=== PATIENT | male | born 1955 | race Caucasian/White ===

== ENCOUNTER 2023-09-15 13:52 | Outpatient (CLI) | payer MEDICARE, SELFPAY ==
[2023-09-15 15:18] LABS: Urine Cotinine NEGATIVE
[2023-09-15 15:23] LABS: Hemoglobin A1C 5.2 % (<5.7)
== END 2023-09-15 13:53 | disposition home or self-care (01) ==
LOC: ANHSURGERY 13:58
PROVIDERS: PCP Family Medicine; Visit Provider Orthopaedic Surgery
DX: M17.12 Unilateral primary osteoarthritis, left knee (principal); Z01.818 Encounter for other preprocedural examination
CPT/HCPCS: 80307; 83036; 87081

== ENCOUNTER 2023-10-07 02:30 | Day surgery (SDC) | payer MEDICARE, SELFPAY ==
[2023-09-15 14:04] VITALS: BMI 30.1
--- NOTE | 2023-09-15 14:29 | PC.NURSE ---
Report to the Outpatient Waiting Room, entrance under the green pavilion located off [facility], at time _0915 on date __10/07/23 . Planned Procedure Time: _1115 . Time changes happen often and if your time is changed the preop area will call you the afternoon before. - You and your visitor will be asked to self-screen and do not enter if you have any COVID symptoms. - A mask is optional within the hospital at this time. Patients may have clear liquids (water, carbonated beverages, clear teas, apple juice) until 3 hours prior to surgery with a maximum of 20 ounces. - No food from midnight until time of surgery - Infants may have breast milk until 4 hours before surgery, formula 6 hours prior to surgery. - Children will be allowed to drink immediately following surgery. If applicable, please bring a bottle or sippy cup to assist with drinking. Juice, water, soda, and popsicles are readily available. For infants on formula, please bring formula the day of surgery. Pacifiers are allowed. Take the following medications with a SIP of water the morning of surgery: __AMLODIPINE,LEVOTHYROXINE,METOPROLOL DO NOT STOP ANY OF YOUR OTHER PRESCRIPTION MEDICATIONS PRIOR TO SURGERY ?EXCEPT THE FOLLOWING Medications to discontinue per physician __PT STATES HOLD VITAMINS/SUPPLEMENTS ,ASPIRIN AND IBUPROFEN 7 DAYS PRE OP PER DR RASMUSSEN. LAST DOSE _09/29/23 Please no make-up, nail ugandan, hairspray, perfume, deodorant, or body powder the day of surgery. No jewelry (including any body piercings) or valuables the day of surgery, leave them at home. Please take a shower or bath the night before, or the morning of, surgery with an antibacterial soap. Wear comfortable, loose fitting clothing. Children are encouraged to wear pajamas. - Jewelry must be removed prior to entering the operating room. Rings and piercings that are not removed may be cut off. - The hospital will not accept responsibility for valuables. - Please leave all valuables, including medications, at home the day of surgery. If you are going home after surgery, a licensed sales route driver must drive you home. - NO public transportation without another adult if you receive anesthesia. - We recommend that an adult stay with you for 24 hours following discharge. - We also recommend that you do not drive, make important decision, drink alcoholic beverages, or take any drugs that were not prescribed by your health care provider for at least 24 hours after your discharge time. For Pediatric surgeries, we recommend two adults accompany the child home. Follow any additional instructions given to you from your surgeon. If you or anyone in your household have experienced Covid symptoms in the past week, please notify your surgeon or the nurse liaison at the phone number below for possible testing. VERBAL AND WRITTEN instructions given to PATIENT AND BEV and asked if any additional questions and then verbalized understanding. Patient advised to call surgeon office or pre surgery nurse liaison [phone] if any additional questions.
[2023-09-15 14:45] VITALS: BP 131/75; PULSE 62; RESP 18; TEMP 36.7; O2SAT 99
--- NOTE | 2023-10-05 12:27 | PM.IMHP ---
H&P: HPI History of Present Illness Date/Time: 10/05/23 12:27 Chief Complaint: Left knee DJD Narrative: 68-year-old male patient of Dr. Araiza who presents today for a left total knee arthroplasty with cortisone injection into the right knee. Patient is having symptoms in both of his knees for 2-3 years. He has been treating these with cortisone injections from time to time, last injections gave him minimal improvement of his symptoms. He has tried bracing which has not helped either. He has used [id number] anti-inflammatories without improvement as well. Patient has severe medial compartment osteoarthritis both knees. At this point he feels he is ready proceed with total knee arthroplasty rather than continue nonsurgical treatment. [facility] Past Medical History Medical History Colon cancer Hypercholesterolemic xanthomatosis Surgical History Surgical History History of colon resection Social History Social History Smoking packs per day: 0.5 Smoking cigarettes per day: 10.0 Years smoked: 5 Smoking pack-years: 2.50 Smoking status: Former smoker Tobacco type: cigarettes Smoking end date: 11/30/73 Additional smoking assessment comments: DENIES ANY FORM OF TOBACCO USE Alcohol intake: never Substance use: never Living arrangements: with family Occupation/Education: retired Spiritual care concerns: No Meds Home Medications and Allergies Home Medications Medication Instructions Recorded Confirmed Type aspirin 81 mg tablet,delayed 81 mg PO DAILY 08/19/22 09/15/23 History release (Adult Low Dose Aspirin) loratadine 10 mg tablet (Claritin) 10 mg PO DAILY 08/19/22 09/15/23 History multivitamin (Daily Multi-Vitamin 1 tablet PO DAILY 08/19/22 09/15/23 History tablet) niacin 500 mg tablet 500 mg PO DAILY 08/19/22 09/15/23 History turmeric root extract 500 mg tablet 500 mg PO DAILY 08/19/22 09/15/23 History levothyroxine 125 mcg tablet See Rx Instructions .Route 08/21/23 09/15/23 Rx .COMPLEX #180 tabs lovastatin 20 mg tablet See Rx Instructions .Route 08/21/23 09/15/23 Rx .COMPLEX #90 tabs cholecalciferol (vitamin D3) 25 25 mcg PO DAILY 09/15/23 09/15/23 History mcg (1,000 unit) tablet ibuprofen 600 mg tablet 600 mg PO QID PRN Pain 09/15/23 09/15/23 History amlodipine 10 mg tablet See Rx Instructions .Route 09/22/23 Rx .COMPLEX #90 tabs hydrochlorothiazide 12.5 mg tablet See Rx Instructions .Route 09/22/23 Rx .COMPLEX #90 tabs metoprolol succinate 25 mg See Rx Instructions .Route 09/22/23 Rx tablet,extended release 24 hr .COMPLEX #90 tabs Allergies Allergy/AdvReac Type Severity Reaction Status Date / Time simvastatin [From Zocor] Allergy Unknown legs aching Unverified 09/15/23 14:06 lisinopril AdvReac Cough Verified 09/15/23 14:06 Exam Narrative: 68-year-old male he is 5 ft 11 224 lb. He has 1+ edema in both ankles. Left knee range of motion is from 0-135 degrees. Trace effusion. He has a positive Stanley's and positive anterior drawer on the left knee. Mild medial joint line pain and moderate laxity to valgus stress. Hip range motion is full without discomfort. Normal quad strength. 2+ posterior artery pulse 1 +dorsalis pedis pulse. Skin is normal. Resp: Auscultation: clear to auscultation bilaterally Cardio: Rate: regular rate Rhythm: regular rhythm Assessment and Plan Assessment and plan (1) Left knee DJD: Code(s): M17.12 - Unilateral primary osteoarthritis, left knee Status: Acute Plan 68-year-old male who has severe medial compartment osteoarthritis in both knees. At this point is left knee is more symptomatic and he feels this point he is ready to proceed with total knee arthroplasty. Surgical procedure as well as the risks and complicati
[2023-10-07] VITALS (14 sets, daily range): BP systolic 114–145; BP diastolic 58–77; PULSE 66–80; RESP 12–20; TEMP 36.2–37; O2SAT 92–100
--- NOTE | ~2023-10-07 | XR_ITS ---
EXAMINATION: [id number] DATE: 10/07/2023 16:03 INDICATION: Postoperative evaluation following left total knee arthroplasty. TECHNIQUE: Anteroposterior and lateral views of the left knee were obtained. COMPARISON: None. FINDINGS: Left total knee arthroplasty without patellar resurfacing appears well seated and in near anatomic al ignment. No fractures identified. Expected postoperative subcutaneous, intramedullary and intra-humera cular gas. IMPRESSION: 1. Left total knee arthroplasty, negative for postoperative purposes. Reviewed, dictated and finalized at location A. [employer]
[2023-10-07] MEDS: TRANEXAMIC ACID 1,000MG/ISO100 1,000 MG/100 ML BAG 200 MG IVPB (10:30)
[2023-10-07] MEDS: LACTATED RINGERS 1,000 ML 30 ML IV CONT ×2 (10:30→16:03)
[2023-10-07] MEDS: ACETAMINOPHEN 500 MG TABLET 1000 MG PO (10:39)
--- NOTE | 2023-10-07 11:17 | WPDANESEPPF ---
Anes - Initial Pre Proc Eval Procedure: Operation Date: 10/07/23 12:00 Proposed Procedures p Left Total Knee Arthroplasty, Right Knee Cortisone Injection - Otto Chan MD Date/Time: 10/07/23 11:17 Surgeon: Otto Chan MD Pre Op Diagnosis: OA bilateral knees Patient Data Age: 68 Gender: M Height: 1.83 m Weight: 98.85 kg Last Vital Signs Temp 97.9 F 10/07/23 09:58 Pulse 66 10/07/23 09:58 Resp 18 10/07/23 09:58 BP 144/69 H 10/07/23 09:58 Pulse Ox 97 10/07/23 09:58 O2 Del Method Room Air 10/07/23 09:58 Allergies Allergy/AdvReac Type Severity Reaction Status Date / Time simvastatin [From Zocor] Allergy Unknown legs aching Unverified 09/15/23 14:06 lisinopril AdvReac Cough Verified 09/15/23 14:06 Home Medications Medication Instructions Recorded Confirmed Type aspirin 81 mg tablet,delayed 81 mg PO DAILY 08/19/22 10/07/23 History release (Adult Low Dose Aspirin) loratadine 10 mg tablet (Claritin) 10 mg PO DAILY 08/19/22 10/07/23 History multivitamin (Daily Multi-Vitamin 1 tablet PO DAILY 08/19/22 10/07/23 History tablet) niacin 500 mg tablet 500 mg PO DAILY 08/19/22 10/07/23 History turmeric root extract 500 mg tablet 500 mg PO DAILY 08/19/22 10/07/23 History levothyroxine 125 mcg tablet See Rx Instructions .Route 08/21/23 10/07/23 Rx .COMPLEX #180 tabs lovastatin 20 mg tablet See Rx Instructions .Route 08/21/23 10/07/23 Rx .COMPLEX #90 tabs cholecalciferol (vitamin D3) 25 25 mcg PO DAILY 09/15/23 10/07/23 History mcg (1,000 unit) tablet ibuprofen 600 mg tablet 600 mg PO QID PRN Pain 09/15/23 10/07/23 History amlodipine 10 mg tablet See Rx Instructions .Route 09/22/23 Rx .COMPLEX #90 tabs hydrochlorothiazide 12.5 mg tablet See Rx Instructions .Route 09/22/23 Rx .COMPLEX #90 tabs metoprolol succinate 25 mg See Rx Instructions .Route 09/22/23 Rx tablet,extended release 24 hr .COMPLEX #90 tabs Patient hx anesthesia problems: none Family hx anesthesia problems: none Results Review: All pre-operative results and documents have been reviewed as part of the pre-operative evaluation. [facility] Past Medical History Medical History Colon cancer Hypercholesterolemic xanthomatosis Surgical History Surgical History History of colon resection Social History Social History Smoking packs per day: 0.5 Smoking cigarettes per day: 10.0 Years smoked: 5 Smoking pack-years: 2.50 Smoking status: Former smoker Tobacco type: cigarettes Smoking end date: 11/30/73 Additional smoking assessment comments: DENIES ANY FORM OF TOBACCO USE Alcohol intake: never Substance use: never Living arrangements: with family Occupation/Education: retired Spiritual care concerns: No Anes - Eval Final PreProcedure Day of Procedure 10/07/23 11:17 Patient weight: normal Heart: regular rate and rhythm Lungs: clear to auscultation Airway: Mallampati scale class II Neurological: alert and oriented Last oral intake: >/= 8 hours ASA classification: III Emergent: no Anesthetic plan: proceed Anesthesia type and monitoring: general LMA and ETT and standard monitoring Results Review: All pre-operative results and documents have been reviewed as part of the pre-operative evaluation. Informed Consent: The patient's anesthetic plan and its attendant risks and benefits were discussed with the patient/family/POA. Questions were solicited and answers provided to the satisfaction of the patient/family/POA.
--- NOTE | 2023-10-07 12:19 | WPDHPUPDATE1 ---
History and Physical Update Update Date/Time: 10/07/23 12:19 History and Physical has been reviewed, including an updated exam of the patient. There are NO changes in the patient's condition. Risks, benefits, and alternatives have been discussed and questions answered. Patient agrees to proceed with procedure.
[2023-10-07] MEDS: ceFAZolin 2 GM/D5W 50 ML 2 GM/50 ML BAG IVPB (12:54)
[2023-10-07] MEDS: ceFAZolin SODIUM 1 GM VIAL 3 GM (13:33)
[2023-10-07] MEDS: TRANEXAMIC ACID 1,000 MG/10 ML AMPUL 1000 MG IV PUSH (14:59)
[2023-10-07] MEDS: ceFAZolin SODIUM 1 GM VIAL IV PUSH (15:01)
[2023-10-07] MEDS: methylPREDNISolone ACETATE 80 MG/ML VIAL IM (15:20)
--- NOTE | 2023-10-07 16:00 | W.PM.PROC2 ---
Procedure Note - Detailed Date of Procedure 10/07/23 Pre-op Diagnosis OA bilateral knees Post-op Diagnosis Same Procedure Performed Cortisone injection right knee Left total knee arthroplasty Surgeon Otto Chan MD Pipe Changer dimitris Anesthesia General Description of Procedure Patient was brought to the operating room and general anesthesia was administered. He received 2 g of Ancef weight is vancomycin 1 g of and tranexamic acid preoperatively. The left knee was prepped draped usual fashion. Limb was exsanguinated tourniquet elevated to 250 mmHg. A 7 in longitudinal midline incision was used in the standard parapatellar arthrotomy utilized infrapatellar and suprapatellar fat pads were excised a quadriceps synovectomy carried out. There was mild chondromalacia of the medial facet of the patella minimal spurring which was debrided I felt this was most appropriate for non resurfacing. A minimal lateral facetectomy was performed. A guide ez was inserted on the femoral canal after aspiration of canal contents and using the 5 degree cutting bushing 8 mm of bone were removed the distal femur. He had pronounced medial pseudolaxity preoperatively and appeared to come out to within 1 or 2? of full extension under anesthesia. Next the tibial plateau was cut. We made a skim cut removing about 1 mm of bone from the low point of the medial tibial plateau. This removed 12 mm from lateral side. The cut was made perpendicular to the axis of tibia. Meniscal remnants were excised the PCL was recessed. Flexion gap measured 10 mm medially 14 mm laterally. The femoral sizing guide was applied to the distal femur set at 5? of external rotation which matched [place] line. Posterior referencing pinholes were placed. We applied the size 70 cutting block and the anterior cut was well off the anterior cortex. We downsized the 67.5 in this given the anterior cut there was appropriate. Posterior and chamfer cuts were made and the 67.5 vanguard femoral component trial fit nicely. There was between 1 and 2 mm of bone medial lateral to the trial component distally. The size 12 CR 75 trial was placed in flexion and lateral flexion gap was 2 mm as was the medial gap with a CR insert. We had good medial to lateral balance in flexion. The tibia was sized to a 75 which fit line to line anteromedial to posterolateral at proper rotation this was punched. Bone quality was excellent. The medial plateau course was quite sclerotic as it was a skim cut. We trialed with the 11 insert. There was no play medially in extension with about 3 mm of lateral gapping in extension with varus stress. There was a little bit loose to anterior posterior drawer at 90?. The medial tibial osteophyte was removed. A large posterior femoral osteophyte was removed and we trialed again with a 12. The 12 had appropriate stability at 90? to AP stress with about a mm each medial lateral opening at 90?. And extension the lateral side opened up between 2 and 3 mm medial side about 1 and with the arthrotomy towel clip excellent stability to anterior drawer at 90 but the knee has no play medially and barely positive bounce. Therefore I elected to remove 1 more mm of bone distal femur. I notice that the 5 degree ez we were at about 5.5? valgus. I removed a full mm medially and 0.5 mm laterally and we revisited the chamfer cuts and at this point the knee came out to full extension to mm medial opening 2-3 lateral opening and the arthrotomy closed the knee still came out to full extension with negative bounce. [place] flexion was 140? with the arthrotomy closed. Excellent AP stability in all positions. Lug holes were drilled in the distal femur. Step drill was used to make multiple perforations in the tibial plateau and distal femur and the bone surfaces thoroughly irrigated dried. Using 2 batches of gentamicin methylmethacrylate the cement was mixed and medially applied the 75 tibial component the 67.5
[2023-10-07] MEDS: KETOROLAC 15 MG/ML VIAL (*BKC) IV PUSH ×3 (16:12→23:49)
--- NOTE | 2023-10-07 16:14 | PM.OP ---
Procedure Note - Brief Procedure Note - Brief Date of procedure: 10/07/23 OA bilateral knees Procedure performed: Left total knee arthroplasty Surgeon: NESS Ryan Findings: 68-year-old male underwent left total knee arthroplasty on 10/07. I was involved in the procedure including positioning the patient on the OR table in 1st assisting through the time of surgery. Total time spent was 3 hours
[2023-10-07] MEDS: fentaNYL CITRATE INJ (*CRX) 100 MCG/2 ML VIAL 25 MCG IV PUSH ×4 (16:26→16:41)
[2023-10-07] MEDS: HYDROmorphone HCL INJ (*CRX) 1 MG/ML SYR 0.5 MG IV PUSH ×2 (16:51→17:09)
--- NOTE | 2023-10-07 17:55 | ADMGEN ---
This patient, Titi Hutchinson, was admitted to [facility] Surg Room 311-01. Patient/family oriented to hospital policies and general routines including ID bracelet, bed and alarms, visiting hours, pain management, procedures, bathroom and other care routines, personal items, smoking policy, room service/diet, and visiting hours. Information on how to activate the Rapid Response Team has been discussed. Patient/Family are encouraged to report perceived risks to care and to ask questions if they do not understand what they are told or what they should do.
[2023-10-07] MEDS: SENNA/DOCUSATE SODIUM TABLET 2 TAB PO (18:32)
[2023-10-07] MEDS: oxyCODONE HCL (*CRX) 5 MG TAB IR PO ×2 (18:32→21:37)
[2023-10-07] MEDS: ACETAMINOPHEN 325 MG TABLET 650 MG PO ×2 (18:32→23:49)
[2023-10-07] MEDS: VANCOMYCIN 1,000 MG/NS 250 ML 1,000 MG/250 ML BAG 250 MG IVPB (18:33)
[2023-10-07] MEDS: FAMOTIDINE 20 MG TABLET PO (21:37)
[2023-10-07] MEDS: ceFAZolin 1 GM/NS 50 ML 1 GM/50 ML BAG IVPB (21:38)
[2023-10-08] MEDS: oxyCODONE HCL (*CRX) 5 MG TAB IR PO ×4 (00:58→12:59)
[2023-10-08 03:28] VITALS: BP 114/63; PULSE 70; RESP 16; TEMP 36.4; O2SAT 98
[2023-10-08] MEDS: ACETAMINOPHEN 325 MG TABLET 650 MG PO ×2 (05:04→12:57)
[2023-10-08] MEDS: ceFAZolin 1 GM/NS 50 ML 1 GM/50 ML BAG IVPB (05:05)
[2023-10-08] MEDS: LEVOTHYROXINE SODIUM 125 MCG TABLET BY MOUTH (05:06)
[2023-10-08 06:16] LABS: Basophils Percent Auto 0.1 % (0.2-1.2); Hematocrit 37.5 % (42.0-52.0); Hemoglobin 12.5 g/dL (14.0-18.0); Immature Granulocyte Absolute 0.08 K/mm3 (0.00-0.031); Immature Granulocyte Percent A 0.6 % (0-0.5); Lymphocytes Absolute Auto 1.13 K/mm3 (0.9-3.2); Lymphocytes Percent Auto 8.3 % (18.3-44.2); Mean Corpuscular HGB Conc 33.3 g/dl (32-36); Mean Corpuscular Volume 93.1 fl (80-100); Neutrophils Absolute Auto 11.4 K/mm3 (1.3-6.7); Platelet Count Result 259 k/mm3 (150-375); Red Blood Count 4.03 M/mm3 (4.6-6.20); Red Cell Distribution Width 13.4 % (11.5-14.5); White Blood Count 13.6 K/mm3 (4.5-10.0)
[2023-10-08 06:17] LABS: Alanine Aminotransferase 67 U/L (6-50); Albumin Level 3.7 g/dL (3.5-5.1); Alkaline Phosphatase 54 U/L (38-126); Anion Gap 5 mmol/L (8-16); Aspartate Amino Transferase 35 U/L (17-59); Bilirubin,Total 0.5 mg/dL (0.2-1.3); Blood Urea Nitrogen 23 mg/dL (9-20); Calcium 8.6 mg/dL (8.4-10.2); Carbon Dioxide 24 mmol/L (22-30); Chloride 105 mmol/L (98-107); Estimated CRCL calculation 74 ml/min; Estimated Glomerular Filt Rate > 60; Glucose 135 mg/dL (65-110); Potassium 4.1 mmol/L (3.4-5.0); Sodium 134 mmol/L (137-145)
[2023-10-08] MEDS: VANCOMYCIN 1,000 MG/NS 250 ML 1,000 MG/250 ML BAG 250 MG IVPB (07:06)
[2023-10-08 07:28] VITALS: BP 125/64; PULSE 70; RESP 18; TEMP 36.1; O2SAT 100
--- NOTE | 2023-10-08 07:33 | PM.PNORT ---
Subjective Subjective Date/Time Seen: 10/08/23 07:33 Interval history: Postop day 1 patient is alert. He is afebrile vital signs are stable. Morning his dressing is dry and intact. Pain is controlled. Neurovascularly is intact. He has been up to the restroom multiple times overnight.. Overall patient is doing very good see eager to go today. We will plan to have the patient work physical therapy this morning and again this afternoon once IV antibiotics have been completed he will be discharged to home. Objective Data Vital Signs Vital Signs: Vital Signs - 24 hr 10/07/23 09:58 10/07/23 16:03 10/07/23 16:15 Temperature 36.6 C 37.0 C Pulse Rate 66 67 75 Respiratory Rate 18 15 12 Blood Pressure 144/69 H 114/58 L 141/77 H Pulse Oximetry 97 98 94 Oxygen Delivery Room Air Simple Face Mask Simple Face Mask Oxygen Flow Rate 8 8 10/07/23 16:30 10/07/23 16:45 10/07/23 17:00 Temperature Pulse Rate 76 80 77 Respiratory Rate 16 13 12 Blood Pressure 145/71 H 144/73 H 138/75 Pulse Oximetry 96 96 96 Oxygen Delivery Simple Face Mask Nasal Cannula Nasal Cannula Oxygen Flow Rate 8 3 3 10/07/23 17:15 10/07/23 17:30 10/07/23 17:55 Temperature 36.3 C L Pulse Rate 75 75 74 Respiratory Rate 14 14 14 Blood Pressure 142/71 H 144/75 H 124/62 Pulse Oximetry 100 98 96 Oxygen Delivery Nasal Cannula Nasal Cannula Oxygen Flow Rate 3 3 10/07/23 18:10 10/07/23 18:40 10/07/23 18:00 Temperature 36.3 C L 36.2 C L Pulse Rate 69 77 Respiratory Rate 12 20 20 Blood Pressure 127/63 133/65 Pulse Oximetry 92 98 98 Oxygen Delivery Nasal Cannula Oxygen Flow Rate 2 10/07/23 19:28 10/07/23 23:28 10/08/23 03:28 Temperature 36.2 C L 36.2 C L 36.4 C Pulse Rate 73 75 70 Respiratory Rate 14 14 16 Blood Pressure 133/63 136/70 114/63 Pulse Oximetry 97 98 98 Oxygen Delivery Oxygen Flow Rate Intake/Output Intake/Output: Intake & Output 10/05/23 10/06/23 10/07/23 10/08/23 23:59 23:59 23:59 23:59 Intake Total 2300 Output Total 550 350 Balance 1750 -350 Meds/Results Medications: Active Medications Generic Name Dose Route Start Last Admin Trade Name Gricel PRN Reason Stop Dose Admin Acetaminophen 650 mg 10/07/23 17:43 10/08/23 05:04 Acetaminophen 325 Mg Tablet PO 650 mg Q6H WOLF Administration Amlodipine Besylate 10 mg 10/08/23 09:00 Amlodipine Besylate 5 Mg Tablet PO QAM [facility] Apixaban 2.5 mg 10/08/23 09:00 Apixaban 2.5 Mg Tablet PO 10/19/23 21:01 Q12HR WOLF Cefdinir 300 mg 10/08/23 09:00 Cefdinir 300 Mg Capsule PO Q12HR WOLF Celecoxib 200 mg 10/08/23 08:00 Celecoxib 200 Mg Capsule PO DAILY@0800 WOLF Diphenhydramine HCl 25 mg 10/07/23 17:43 Diphenhydramine Hcl Inj 50 Mg/Ml Vial IV PUSH Q6H PRN Itching Famotidine 20 mg 10/07/23 21:00 10/07/23 21:37 Famotidine 20 Mg Tablet PO 20 mg Q12HR WOLF Administration Hydrochlorothiazide 12.5 mg 10/08/23 09:00 Hydrochlorothiazide 12.5 Mg Capsule PO QAM [facility] Vancomycin HCl 1,000 mg in 250 mls @ 250 mls/hr 10/07/23 19:00 10/08/23 07:06 Vancomycin 1,000 Mg/Ns 250 Ml IVPB 10/08/23 07:59 250 mls/hr Q12H WOLF Administration Cefazolin Sodium 1 gm in 50 mls @ 100 mls/hr 10/07/23 21:00 10/08/23 05:05 Ancef 1 Gm/Ns 50 Ml IVPB 10/08/23 13:29 100 mls/hr Q8H WOLF Administration Levothyroxine Sodium 125 mcg 10/08/23 06:30 10/08/23 05:06 Levothyroxine Sodium 125 Mcg Tablet BY MOUTH 125 mcg DAILY@0630 WOLF Administration Lovastatin 20 mg 10/08/23 09:00 Lovastatin 20 Mg Tablet BY MOUTH DAILY [facility] Metoprolol Succinate 25 mg 10/08/23 09:00 Metoprolol Succinate Ext Rel 25 Mg Tabcr PO QAM [facility] Naloxone HCl 0.1 mg 10/07/23 17:43 Naloxone Hcl 0.4 Mg/Ml Vial IV PUSH Q2M PRN Opiate Reversal Ondansetron HCl 4 mg 10/07/23 17:43 Ondansetron Inj 4 Mg/2 Ml Vial IV PUSH Q4H PRN Nausea And Vomiting Ox
--- NOTE | 2023-10-08 07:34 | PM.DS ---
DS: Admitting Diagnosis Discharge Date 10/08 Admitting Diagnosis Left knee DJD DS: Discharge Diagnosis Discharge Diagnosis (1) Left knee DJD: Code(s): M17.12 - Unilateral primary osteoarthritis, left knee Status: Acute DS: Summary Hospital Course Hospital Course: 68-year-old male who on left total knee arthroplasty on 10/07. Underwent the procedure without complications. Postoperatively he has been afebrile and vital signs are stable. Neurovascular he is intact. Dressing is dry and it pain is well controlled with scheduled Tylenol 650 q.6 also on oxycodone 5 mg. He is also getting Celebrex 200 mg daily. 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 He is on Eliquis for DVT prophylaxis. On postop day 1 patient's liver enzymes had improved dramatically he had elevation of his ALT only at this point the rest had returned to normal. Times a day of surgery and comfortable. He is going to be discharged home 11 9. Patient does have a heel lift to be worn in his right leg he is recovering from this due to his significant leg. Patient was strongly advised to keep leg elevated home with foot higher than heart to prevent swelling in the leg and knee. Size is every hour while awake. He has outpatient therapy starting next week. Patient will also go home on Senokot MiraLax as well as a 10 day course of Omnicef. He was advised any questions or concerns he is to call the office. Time Spent with Patient Time attestation: Total time spent providing and/or coordinating discharge services: DS: Data Data Completed and Pending Labs on day of discharge: Labs from last 24 hours 10/08/23 10/07/23 05:24 10:17 WBC 13.6 H RBC 4.03 L Hgb 12.5 L Hct 37.5 L MCV 93.1 MCH 31.0 MCHC 33.3 RDW 13.4 Plt Count 259 MPV 10.0 Immature Gran % (Auto) 0.6 H Neut % (Auto) 84.0 H Lymph % (Auto) 8.3 L [place] % (Auto) 7.0 Eos % (Auto) 0.0 Baso % (Auto) 0.1 L Lymph # (Auto) 1.13 [place] # (Auto) 1.0 H Eos # (Auto) 0.0 Baso # (Auto) 0.0 Abs Immat Gran (auto) 0.08 H Absolute Neuts (auto) 11.4 H Absolute Nucleated RBC 0.0 Nucleated RBC % 0.0 Sodium 134 L Potassium 4.1 Chloride 105 Carbon Dioxide 24 Anion Gap 5 L BUN 23 H Creatinine 0.90 Estim Creat Clear Calc 74 Estimated GFR > 60 Glucose 135 H Calcium 8.6 Total Bilirubin 0.5 AST 35 ALT 67 H Alkaline Phosphatase 54 Total Protein 6.0 L Albumin 3.7 Blood Type A Positive Antibody Screen Negative Discharge Plan Discharge Patient Disposition: Home, Self-Care Stand Alone Forms: General Discharge Instructions Discharge Medications: No Action levothyroxine 125 mcg tablet See Rx Instructions .ROUTE .COMPLEX Qty: 180 1RF Dose Instruction: TAKE 2 TABLETS BY MOUTH EVERY DAY Rx Instructions: TAKE 2 TABLETS BY MOUTH EVERY DAY lovastatin 20 mg tablet See Rx Instructions .ROUTE .COMPLEX Qty: 90 0RF Dose Instruction: TAKE 1 TABLET BY MOUTH EVERY DAY Rx Instructions: TAKE 1 TABLET BY MOUTH EVERY DAY multivitamin [Daily Multi-Vitamin] Tablet 1 tablet PO DAILY aspirin [Adult Low Dose Aspirin] 81 mg tablet,delayed release (DR/EC) 81 mg PO DAILY loratadine [Claritin] 10 mg tablet 10 mg PO DAILY niacin 500 mg tablet 500 mg PO DAILY turmeric root extract 500 mg tablet 500 mg PO DAILY cholecalciferol (vitamin D3) 25 mcg (1,000 unit) Tablet 25 mcg PO DAILY ibuprofen 600 mg Tablet 600 mg PO QID PRN (Reason: Pain) hydrochlorothiazide 12.5 mg tablet See Rx Instructions .ROUTE .COMPLEX Qty: 90 0RF Dose Instruction: TAKE 1 TABLET BY MOUTH DAILY Rx Instructions: TAKE 1 TABLET BY MOUTH DAILY metoprolol succinate 25 mg tablet extended release 24 hr See Rx Instructions .ROUTE .COMPLEX Qty: 90 0RF Dose Instruction: TAKE 1 TABLET BY
[2023-10-08] MEDS: CEFDINIR 300 MG CAPSULE PO (09:02)
[2023-10-08] MEDS: CELECOXIB 200 MG CAPSULE PO (09:02)
[2023-10-08] MEDS: amLODIPine BESYLATE 5 MG TABLET 10 MG PO (09:02)
[2023-10-08 09:03] VITALS: PULSE 70
[2023-10-08] MEDS: APIXABAN 2.5 MG TABLET PO (09:03)
[2023-10-08] MEDS: LOVASTATIN 20 MG TABLET BY MOUTH (09:03)
[2023-10-08] MEDS: hydroCHLOROthiazide 12.5 MG CAPSULE PO (09:03)
[2023-10-08] MEDS: FAMOTIDINE 20 MG TABLET PO (09:03)
[2023-10-08] MEDS: polyethylene glycoL 3350 17 GM POWD.PACK PO (09:03)
[2023-10-08] MEDS: METOPROLOL SUCCINATE EXT REL 25 MG TABCR PO (09:03)
--- NOTE | 2023-10-08 09:14 | P.PNAN_ITS ---
Anes - Prog Note Post-Op Date/Time: 10/08/23 09:14 Cardiovascular status: normal Respiratory status: normal Airway patency: baseline Mental status: baseline Post-Op hydration status: normal Vital Signs: Last Vital Signs Temp 36.1 C L 10/08/23 07:28 Pulse 70 10/08/23 09:03 Resp 18 10/08/23 07:28 BP 125/64 10/08/23 07:28 Pulse Ox 100 10/08/23 07:28 O2 Del Method Room Air 10/08/23 08:30 O2 Flow Rate 2 10/07/23 18:00 Pain Score (VAS): 02/06 I/O: Intake & Output 10/07/23 10/08/23 10/08/23 23:59 07:59 15:59 Intake Total 2300 Output Total 550 350 200 Balance 1750 -350 -200 Laboratory Tests 10/08/23 05:24 10/08/23 05:24 10/07/23 10/08/23 10:17 05:24 WBC 13.6 H RBC 4.03 L Hgb 12.5 L Hct 37.5 L MCV 93.1 MCH 31.0 MCHC 33.3 RDW 13.4 Plt Count 259 MPV 10.0 Immature Gran % (Auto) 0.6 H Neut % (Auto) 84.0 H Lymph % (Auto) 8.3 L [place] % (Auto) 7.0 Eos % (Auto) 0.0 Baso % (Auto) 0.1 L Lymph # (Auto) 1.13 [place] # (Auto) 1.0 H Eos # (Auto) 0.0 Baso # (Auto) 0.0 Abs Immat Gran (auto) 0.08 H Absolute Neuts (auto) 11.4 H Absolute Nucleated RBC 0.0 Nucleated RBC % 0.0 Sodium 134 L Potassium 4.1 Chloride 105 Carbon Dioxide 24 Anion Gap 5 L BUN 23 H Creatinine 0.90 Estim Creat Clear Calc 74 Estimated GFR > 60 Glucose 135 H Calcium 8.6 Total Bilirubin 0.5 AST 35 ALT 67 H Alkaline Phosphatase 54 Total Protein 6.0 L Albumin 3.7 Blood Type A Positive Antibody Screen Negative Post-procedural complaints: none Patient Feedback: Patient satisfied with anesthetic care.
[2023-10-08 11:28] VITALS: BP 140/64; PULSE 80; RESP 20; TEMP 36.7; O2SAT 100
--- NOTE | 2023-10-08 13:20 | PC.NURSE ---
iv out, d/c papers signed, denies any questions, dressing changed and one extra sent home for POD 7. patient leaving by private car, taken out by wheelchair
== END 2023-10-08 14:45 | disposition home or self-care (01) ==
LOC: ANHSURGERY 09:41 → ANH3MEDSUR 17:45
PROVIDERS: Physician Assistant Surgical; PCP Family Medicine; Visit Provider Orthopaedic Surgery
PROC: (CPT 27447; principal; 2023-10-07 12:00)
DX: M17.0 Bilateral primary osteoarthritis of knee (principal); Z79.82 Long term (current) use of aspirin; Z85.038 Personal history of other malignant neoplasm of large intestine; Z90.49 Acquired absence of other specified parts of digestive tract; Z87.891 Personal history of nicotine dependence
CPT/HCPCS: 27447; 20610; 36415; 73560; 80053; 80307; 83036; 85025; 86850; 86900; 86901; 87081; 97110; 97116; 97161; 97165; 97530; A9270; C1713; C1776; J0171; J0330; J0690; J1040; J1100; J1170; J1885; J2270; J2405; J2704; J2795; J3010; J3370; J7120

== ENCOUNTER 2024-09-22 09:36 | Outpatient (CLI) | payer MEDICARE, SELFPAY ==
--- NOTE | 2024-09-22 10:39 | ECG_ITS ---
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
[2024-09-22 12:05] LABS: Basophils Percent Auto 0.4 % (0.2-1.2); Eosinophils Absolute Auto 0.3 K/mm3 (0-0.3); Eosinophils Percent Auto 3.6 % (0-4.4); Hematocrit 42.5 % (42.0-52.0); Hemoglobin 14.5 g/dL (14.0-18.0); Immature Granulocyte Absolute 0.02 K/mm3 (0.00-0.031); Immature Granulocyte Percent A 0.3 % (0-0.5); Lymphocytes Absolute Auto 2.14 K/mm3 (0.9-3.2); Lymphocytes Percent Auto 30.7 % (18.3-44.2); Mean Corpuscular HGB Conc 34.1 g/dl (32-36); Mean Corpuscular Hemoglobin 31.9 pg (26-34); Mean Corpuscular Volume 93.4 fl (80-100); Mean Platelet Volume 10.1 fl (7.4-10.4); Monocytes Absolute Auto 0.8 K/mm3 (0.1-0.6); Monocytes Percent Auto 11.4 % (2.6-8.5); Neutrophils Absolute Auto 3.7 K/mm3 (1.3-6.7); Neutrophils Percent Auto 53.6 % (45.5-73.1); Platelet Count Result 275 k/mm3 (150-375); Red Blood Count 4.55 M/mm3 (4.6-6.20); Red Cell Distribution Width 13.3 % (11.5-14.5)
[2024-09-22 12:18] LABS: Urine Cotinine NEGATIVE
[2024-09-22 12:19] LABS: Albumin Level 4.1 g/dL (3.5-5.1); Anion Gap 9 mmol/L (4-12); Blood Urea Nitrogen 19 mg/dL (9-20); Calcium 8.9 mg/dL (8.4-10.2); Carbon Dioxide 24 mmol/L (22-30); Chloride 107 mmol/L (98-107); Estimated Glomerular Filt Rate > 60; Glucose 86 mg/dL (65-110); Potassium 3.9 mmol/L (3.4-5.0); Sodium 140 mmol/L (137-145)
[2024-09-22 12:37] LABS: Hemoglobin A1C 5.6 % (<5.7)
== END 2024-09-22 09:37 | disposition home or self-care (01) ==
PROVIDERS: PCP Nurse Practitioner Family; Visit Provider Orthopaedic Surgery
DX: M17.11 Unilateral primary osteoarthritis, right knee (principal); Z01.818 Encounter for other preprocedural examination
CPT/HCPCS: 80048; 80307; 82040; 83036; 85025; 87081; 93005

== ENCOUNTER 2024-10-10 01:18 | Day surgery (SDC) | payer MEDICARE, SELFPAY ==
[2024-09-22 09:55] VITALS: BMI 30.4
--- NOTE | 2024-09-22 10:22 | PC.NURSE ---
Report to the Outpatient Waiting Room, entrance under the green pavilion located off [facility], at time _6 AM on date 10/10/24 . Planned Procedure Time: _7:30 AM .? Time changes happen often and if your time is changed the preop area will call you the afternoon before. - You and your visitor will be asked to self-screen and do not enter if you have any COVID symptoms. Please call surgeon if you need to reschedule. - A mask is optional within the hospital at this time. Patients may have clear liquids (water, carbonated beverages, clear teas, apple juice) until 3 hours prior to surgery( 4:30 AM) with a maximum of 20 ounces. - No food from midnight until time of surgery and no smoking - Infants may have breast milk until 4 hours before surgery, infant formula 6 hours prior to surgery. - Children will be allowed to drink immediately following surgery.? If applicable, please bring a bottle or sippy cup to assist with drinking. Juice, water, soda, and popsicles are readily available.? For infants on formula, please bring formula the day of surgery.? Pacifiers are allowed. Take only the following medications with a SIP of water on the morning of surgery: _AMLODIPINE, LEVOTHYROXINE,METOPROLOL DO NOT STOP ANY OF YOUR OTHER PRESCRIPTION MEDICATIONS PRIOR TO SURGERY EXCEPT THE FOLLOWING Medications to discontinue per physician __CONTINUE TAKING CELECOXIB PER DR RASMUSSEN. HOLD MULTIVITAMIN 3 DAYS PRE OP .LAST DOSE 10/06/24 Please no make-up, nail french, hairspray, perfume, deodorant, or body powder the day of surgery.? No jewelry (including any body piercings) or valuables the day of surgery, leave them at home.? Please take a shower or bath the night before, or the morning of, surgery with an antibacterial soap.? Wear comfortable, loose fitting clothing.? Children are encouraged to wear pajamas. - Jewelry must be removed prior to entering the operating room.? Rings and piercings that are not removed may be cut off. - The hospital will not accept responsibility for valuables.? - Please leave all valuables, including medications, at home the day of surgery. If you are going home after surgery, a licensed petroleum transport driver must drive you home.? - NO public transportation without another adult if you receive anesthesia. - We recommend that an adult stay with you for 24 hours following discharge. - We also recommend that you do not drive, make important decision, drink alcoholic beverages, or take any drugs that were not prescribed by your health care provider for at least 24 hours after your discharge time. Follow any additional instructions given to you from your surgeon. VERBAL AND WRITTEN instructions given to _PATIENT AND COURTNEY and asked if any additional questions and then verbalized understanding. Patient advised to call surgeon office or pre surgery nurse liaison [phone] if any additional questions.
[2024-09-22 10:40] VITALS: BP 125/62; PULSE 60; RESP 18; TEMP 36.7; O2SAT 100
--- NOTE | 2024-10-07 11:03 | P.HP_ITS ---
H&P: HPI History of Present Illness Date/Time: 10/07/24 11:03 Chief Complaint: Right knee DJD Narrative: 69-year-old male presents today for a right total knee arthroplasty. Patient underwent left total knee arthroplasty in September of last year. He had uneventful recovery and is overall very happy with his results. Patient has severe medial compartment osteoarthritis in the right knee. He feels this point he is ready proceed with total knee arthroplasty. He has been taking Celebrex 200 mg daily as well as Tylenol. Review of Systems Review of Systems: All systems reviewed & are unremarkable except as noted in HPI and below PMFSH Past Medical History Medical History Colon cancer Hypercholesterolemic xanthomatosis Surgical History Surgical History History of colon resection Hx of knee surgery Social History Social History Social History: very confident with medical forms 10/02/24 patient declined SDOH Smoking packs per day: 0.5 Smoking cigarettes per day: 10.0 Years smoked: 5 Smoking pack-years: 2.50 Smoking status: Former smoker Tobacco type: cigarettes Second hand tobacco smoke exposure: Yes Smoking end date: 11/30/73 Additional smoking assessment comments: DENIES ANY FORM OF TOBACCO USE Alcohol intake: never Substance use: never Substance use type: does not use Do You Feel Safe in your Home?: Yes Lack of Transportation: No Lack of Food: Never True Current Housing: I Have Housing Concerned About Future Housing: No Difficulty Paying Gas/Electric Bills: No Difficulty Paying for Meds: No Currently Unemployed: No Education: Trade/Vocational Certificate Difficulty w/ Childcare or Family Care: No Living arrangements: with family 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 Gender identity (if verbalized by the patient): Male Spiritual care concerns: No Meds Home Medications and Allergies Home Medications Medication Instructions Recorded Confirmed Type loratadine 10 mg tablet (Claritin) 10 mg PO DAILY 08/19/22 10/05/24 History multivitamin (Daily Multi-Vitamin 1 tablet PO DAILY 08/19/22 10/05/24 History tablet) amlodipine 10 mg tablet See Rx Instructions .Route 06/27/24 10/05/24 Rx .COMPLEX #90 tabs hydrochlorothiazide 12.5 mg tablet See Rx Instructions .Route 06/27/24 10/05/24 Rx .COMPLEX #90 tabs metoprolol succinate 25 mg See Rx Instructions .Route 06/27/24 10/05/24 Rx tablet,extended release 24 hr .COMPLEX #90 tabs levothyroxine 125 mcg tablet See Rx Instructions .Route 06/28/24 10/05/24 Rx .COMPLEX #180 tabs celecoxib 200 mg capsule (Celebrex) 200 mg PO PRN PRN Pain 09/22/24 10/05/24 History lovastatin 20 mg tablet See Rx Instructions .Route 09/28/24 10/05/24 Rx .COMPLEX #90 tabs Allergies Allergy/AdvReac Type Severity Reaction Status Date / Time simvastatin [From Zocor] Allergy Unknown legs aching Verified 10/05/24 09:36 lisinopril AdvReac Cough Verified 10/05/24 09:36 Exam Narrative: 69-year-old male very alert. BMI is 30. 4. Right knee range of motion is from 5-130 degrees. There is obvious valgus alignment with some lateral laxity to varus stress. Very little medial laxity. There is a 3 in medial oblique scar from previous open meniscectomy. Mild effusion in the knee. 2+ pedal edema in the right lower extremity trace pedal edema in the left. 2+ pitting pretibial edema on the right 1+ on the left. Hip has full range of motion without discomfort, negative Stinchfield maneuver. Normal quad strength. Normal sensation right lower extremity. 2+ dorsalis pedis and posterior artery pulse. Resp: Auscultation: clear to auscultation bilaterally Cardio: Rate: regular rate Rhythm: regular rhythm Assessment and Plan Assessment and plan (1) Primary osteoarthritis of right knee: Code(s): M17.11 - Unilateral primary osteoarthritis, right knee Status: Acute Assessment and Plan: 69-year-old male who has advanced medial compartment osteoarthritis in the right knee with continued symptoms. Patient is happy with his left knee replacement and feels he is ready proceed with the right. Surgical procedures well as the risks and complications were discussed in detail all questions were answered and we will proceed. Patient will take his Celebrex up until the day of surgery but not take it the day of surgery. He will see his primary care doctor for pre- surgical clearance. Did have abnormality on his EKG. He was seen by Cardiology and was cleared without additional testing. Patient's nasal swab was negative. Hemoglobin is 14.5 platelets are 275. Chem panel was all within normal limits creatinine 0.80
[2024-10-10] VITALS (15 sets, daily range): BP systolic 119–136; BP diastolic 53–73; PULSE 61–74; RESP 12–19; TEMP 35.7–36.7; O2SAT 89–100; BMI 31.1
--- NOTE | ~2024-10-10 | XR_ITS ---
EXAMINATION: [id number] DATE: 10/10/2024 11:23 INDICATION: Total right knee arthroplasty. Postop. TECHNIQUE: 2 views of right knee were obtained. COMPARISON: Right knee radiographs 08/03/2024 FINDINGS: There is a total right knee arthroplasty without patellar resurfacing in near-anatomic alig nment. No fracture. There are osteophytes of the patella. There is gas in the knee joint and soft tis sues, consistent with recent surgery. IMPRESSION: 1. Total right knee arthroplasty in near-anatomic alignment. Reviewed, dictated and finalized at location [facility]. [facility]
[2024-10-10] MEDS: ACETAMINOPHEN 500 MG TABLET 1000 MG PO (06:30)
[2024-10-10] MEDS: LACTATED RINGERS 1,000 ML 30 ML IV CONT ×2 (06:30→11:22)
[2024-10-10] MEDS: VANCOMYCIN 1,500 MG/NS 500 ML BAG 250 MG IVPB (06:30)
[2024-10-10] MEDS: TRANEXAMIC ACID 1,000MG/ISO100 1,000 MG/100 ML BAG 200 MG IVPB (07:00)
--- NOTE | 2024-10-10 07:18 | WPDHPUPDATE1 ---
History and Physical Update Update Date/Time: 10/10/24 07:18 History and Physical has been reviewed, including an updated exam of the patient. There are NO changes in the patient's condition. Risks, benefits, and alternatives have been discussed and questions answered. Patient agrees to proceed with procedure.
--- NOTE | 2024-10-10 07:19 | P.PNAN_ITS ---
Anes - Initial Pre Proc Eval Procedure: Operation Date: 10/10/24 07:30 Proposed Procedures p Right Total Knee Arthroplasty - Otto Chan MD Date/Time: 10/10/24 07:19 Surgeon: Otto Chan MD Pre Op Diagnosis: O A Rt Knee Patient Data Age: 69 Gender: M Height: 1.83 m Weight: 101.6 kg Last Vital Signs Temp 98.0 F 09/22/24 10:40 Pulse 60 09/22/24 10:40 Resp 18 09/22/24 10:40 BP 125/62 09/22/24 10:40 Pulse Ox 100 09/22/24 10:40 O2 Del Method Room Air 09/22/24 10:40 Allergies Allergy/AdvReac Type Severity Reaction Status Date / Time simvastatin [From Zocor] Allergy Unknown legs aching Verified 10/05/24 09:36 lisinopril AdvReac Cough Verified 10/05/24 09:36 Home Medications Medication Instructions Recorded Confirmed Type loratadine 10 mg tablet (Claritin) 10 mg PO DAILY 08/19/22 10/05/24 History multivitamin (Daily Multi-Vitamin 1 tablet PO DAILY 08/19/22 10/05/24 History tablet) amlodipine 10 mg tablet See Rx Instructions .Route 06/27/24 10/05/24 Rx .COMPLEX #90 tabs hydrochlorothiazide 12.5 mg tablet See Rx Instructions .Route 06/27/24 10/05/24 Rx .COMPLEX #90 tabs metoprolol succinate 25 mg See Rx Instructions .Route 06/27/24 10/05/24 Rx tablet,extended release 24 hr .COMPLEX #90 tabs levothyroxine 125 mcg tablet See Rx Instructions .Route 06/28/24 10/05/24 Rx .COMPLEX #180 tabs celecoxib 200 mg capsule (Celebrex) 200 mg PO PRN PRN Pain 09/22/24 10/05/24 History lovastatin 20 mg tablet See Rx Instructions .Route 09/28/24 10/05/24 Rx .COMPLEX #90 tabs Laboratory Tests 10/10/24 06:20 Blood Type A Positive Antibody Screen Pending Patient hx anesthesia problems: none Family hx anesthesia problems: none Results Review: All pre-operative results and documents have been reviewed as part of the pre- operative evaluation. [facility] Past Medical History Medical History Colon cancer Hypercholesterolemic xanthomatosis Surgical History Surgical History History of colon resection Hx of knee surgery Social History Social History Social History: very confident with medical forms 10/02/24 patient declined SDOH Smoking packs per day: 0.5 Smoking cigarettes per day: 10.0 Years smoked: 5 Smoking pack-years: 2.50 Smoking status: Former smoker Tobacco type: cigarettes Second hand tobacco smoke exposure: Yes Smoking end date: 11/30/73 Additional smoking assessment comments: DENIES ANY FORM OF TOBACCO USE Alcohol intake: never Substance use: never Substance use type: does not use Do You Feel Safe in your Home?: Yes Lack of Transportation: No Lack of Food: Never True Current Housing: I Have Housing Concerned About Future Housing: No Difficulty Paying Gas/Electric Bills: No Difficulty Paying for Meds: No Currently Unemployed: No Education: Trade/Vocational Certificate Difficulty w/ Childcare or Family Care: No Living arrangements: with family 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 Informed Consent: The patient's anesthetic plan and its attendant risks and benefits were discussed with the patient/family/POA. Questions were solicited and answers provided to the satisfaction of the patient/family/POA.
--- NOTE | 2024-10-10 07:19 | WPDHPUPDATE1 ---
History and Physical Update Update Date/Time: 10/10/24 07:19 History and Physical has been reviewed, including an updated exam of the patient. There are NO changes in the patient's condition. Risks, benefits, and alternatives have been discussed and questions answered. Patient agrees to proceed with procedure.
[2024-10-10] MEDS: ceFAZolin 2 GM/D5W 50 ML 2 GM/50 ML BAG IVPB ×2 (07:27→14:22)
[2024-10-10] MEDS: ceFAZolin SODIUM 1 GM VIAL 3 GM (08:11)
[2024-10-10] MEDS: GENTAMICIN BONE CEMENT REFOBACIN 1 EACH TOPICAL (10:05)
[2024-10-10] MEDS: KETOROLAC 15 MG/ML VIAL (*BKC) IV PUSH ×3 (10:22→17:22)
[2024-10-10] MEDS: ceFAZolin SODIUM 1 GM VIAL 2 GM IV PUSH (10:29)
[2024-10-10] MEDS: TRANEXAMIC ACID 1,000 MG/10 ML AMPUL 1000 MG IV PUSH (10:32)
[2024-10-10] MEDS: SODIUM CHLORIDE 0.9% IV 38.7 ML, MORPHINE SULFATE INJ (*CRX) 2 MG, ROPivacaine HCL 1% 2... INFILTRATE (10:41)
--- NOTE | 2024-10-10 11:29 | PM.OP ---
Procedure Note - Brief Procedure Note - Brief Date of procedure: 10/10/24 O A Rt Knee Procedure performed: Right total knee arthroplasty Surgeon: NESS Ryan Findings: 69-year-old male who underwent right total knee arthroplasty on 10/10. I was involved in the procedure including positioning the patient on the OR table in 1st assisting to the time of surgery. Total time spent was 3-1/2 hours
--- NOTE | 2024-10-10 11:36 | P.OP_ITS ---
Procedure Note - Detailed Date of Procedure 10/10/24 Pre-op Diagnosis O A Rt Knee Post-op Diagnosis Same Procedure Performed Right total knee arthroplasty Surgeon Otto Chan MD [employer] dimitris Anesthesia General Description of Procedure Patient was brought to the operating room and general anesthesia was administered. He received 2 g of Ancef weight based vancomycin 1 g of TXA preoperatively. The right leg was prepped and draped in usual fashion and tourniquet elevated to 275 mmHg. He lacked approximately 10? of extension preoperatively. This was under anesthesia. A 7 in longitudinal midline incision was used and a standard parapatellar arthrotomy utilized. Partial exc ision of infrapatellar fat pad was performed and quadriceps synovectomy was carried out. The patella showed some mild chondromalacia and was suitable for non resurfacing. A limited lateral facetectomy was performed. A guide ez was inserted on femoral canal after aspiration of canal contents using the 5 degree valgus cutting bushing, 8 mm of bone removed the distal femur. He had so much wear medially that the guide set below the apex of the lateral femoral condyle and of taken off 10 mm with the 9 mm setting. Next the tibial plateau was cut. He had a pronounced defect the medial tibial plateau due to wear. We cut the tibia so that we removed 12 mm of bone from the lateral plateau and cut this at 2? of varus and this left a defect of about 3 mm still on the medial tibial plateau in the center of the wear area. I did not wish to cut more tibia as I felt this would excessively release the lateral capsule from the tibia. Meniscal remnants were excised and the PCL recessed. Flexion gap measured 14 laterally and 10 mm medially. We set the sizing guide at 4? of external rotation which matched [place] line and posterior referencing pinholes were placed. The 67.5 vanguard cutting blocks applied AP and chamfer cuts were made in this gave a nice flush cut with the anterior cortex. The trial fit nicely. At 90? we could easily insert the 12 mm CR trial with the medial side still been a little bit tighter than lateral side. The tibia was sized to a 75 which fit line to line posterolateral to anteromedial at proper rotation and this was punched. Posteromedially this hung over the wear defect approximately 7 or 8 mm and the unsupported tray area was a 1.5 cm anterior-posterior. Does of his level of activities younger age therefore I elected to use the longer finned stem. We trialed with the 12 insert which seemed to have a little bit of extra play in flexion and lacked 10? of extension being tight medially with ample play laterally. The large posteromedial tibial osteophyte was scored with a 2 mm drill bit as the bone was sclerotic and the drill holes connected with quarter-inch osteotome and the bone of the posteromedial osteophyte was removed without releasing posteromedial capsule other than what was necessary to expose the osteophyte to be removed. On read trialing the knee lacked just a few degrees of extension. At this point posterior femoral osteophytes removed and central capsular release off the posterior femur was performed and we punched for the 80 minutes the fin stem in the tibial tray and now with the 12 the knee came out now to full extension with negative bounce with 1 mm medial opening in 2 mm lateral opening in full extension. At 90? of flexion a 12 seemed just a little loose and we trialed with the 13 which fit easily and had the ideal 2- 3 mm of anterior posterior drawer at 90? equally medially laterally now even with the arthrotomy towel clipped but the knee lacked a couple of degrees of extension with no play medially therefore an additional mm of bone was removed from the distal femur chamfer cuts revisited and now with the 13 the knee came out to full extension with negative bounce with the arthrotomy towel clip. [place] flexion was 140?. Lug holes were drilled for the femoral component. We put the tourniquet down at 90 minutes at this point the limb was re- exsanguinated tourniquet elevated to 300 mmHg. Step drill was used to make numerous perforations in the tibial plateau including the sclerotic defect. Distal femur was also treated with the step drill. Bony surfaces thoroughly irrigated and dried. Using 2 batches of methylmethacrylate 1 the gentamicin powder the cement was applied to the size 75 modular vanguard tibial tray with the 12 mm x 80 mm finned stem attached. Cement applied the 67.5 CR right femoral component cement applied the tibial plateau pressurized and in the canal and the tibial tray fully seated. Cement applied to the femur in the femoral component fully seated the knee brought into extension with a 14 mm 5 and 1 insert for pressurization. Tourniquet was released total tourniquet time approximately 105 minutes. After cement hardening excess cement was sought for removed and hemostasis was achieved we trialed with the 13 insert which gave excellent stability in all positions as above. This was placed locked with a locking pin range of motion stability and patellar tracking reconfirmed. Local anesthetic cocktail was injected into the periarticular soft tissues. Arthrotomy was closed with 2. Vicryl 1. Unidirectional barbed Stratafix suture. Skin was closed with 2 subcutaneous Vicryl and glue. EBL was 250 cc. Additional 2 g of Ancef 1 g of TXA given postoperatively. He was transferred postop recovery room in stable condition. No known complications. [facility] - Charge Forward: Surgery Billing (dimitris)
[2024-10-10] MEDS: fentaNYL CITRATE INJ (*CRX) 100 MCG/2 ML VIAL 25 MCG IV PUSH ×7 (11:45→12:31)
--- NOTE | 2024-10-10 13:10 | P.CONIM_ITS ---
Assessment and Plan Assessment and plan (1) Primary osteoarthritis of right knee: Code(s): M17.11 - Unilateral primary osteoarthritis, right knee Status: Acute Assessment and Plan: Postoperative day 0 status post right total knee arthroplasty. Wound care, pain control, DVT prophylaxis deferred to primary service. Check baseline labs in a.m.. PT/OT consulted. (2) Hypertension: Code(s): I10 - Essential (primary) hypertension Status: Acute Assessment and Plan: Blood pressures were reviewed and they have been stable postoperatively. Resume metoprolol succinate, hydrochlorothiazide, and amlodipine. Continue to monitor blood pressures closely. (3) Hyperlipidemia: Qualifiers: Hyperlipidemia type: mixed hyperlipidemia Qualified Code(s): E78.2 - Mixed hyperlipidemia Code(s): E78.5 - Hyperlipidemia, unspecified Status: Acute Assessment and Plan: Continue lovastatin check LFTs in a.m. (4) Hypothyroidism: Code(s): E03.9 - Hypothyroidism, unspecified Status: Acute Assessment and Plan: Continue levothyroxine and check TSH. Plan Thank you for allowing us to participate in this patient's care. Please do not hesitate to contact us with any questions. HPI Date of Consult Consult date: 10/10/24 Requesting Physician: Otto Chan MD Primary Care Provider: JEANA Aivtia Consult Narrative Reason for consult: medical management Narrative: This is a 69-year-old male with osteoarthritis, hypertension, hyperlipidemia, and hypothyroidism him the hospitalist service has been consulted for help managing his medical conditions postoperatively. He presented today for an elective right total knee arthroplasty due to ongoing pain despite conservative outpatient treatment. Surgery was performed under general anesthesia with no immediate complications documented an estimated blood loss of 250 mL. Postoperatively he has done quite well and his pain is well controlled. He denies fever, chills, sweats, chest pain, shortness of breath, nausea, and vomiting. He also denies paresthesias, skin color, and temperature changes distal to the surgical site. Regarding his chronic medical conditions, he believes his hypertension, hyperlipidemia, and hypothyroidism are well controlled on medication. Review of Systems Review of Systems: 12 systems were reviewed and are negativ e except for as per HPI. [facility] Past Medical History Medical History (Updated 10/10/24 @ 15:24 by Lidya Rodrigues PA-C) Colon cancer Hyperlipidemia Hypertension Hypothyroidism Kidney stones Surgical History Surgical History (Updated 10/10/24 @ 15:24 by Lidya Rodrigues PA-C) History of arthroplasty of left knee (10/07/23) History of arthroplasty of right knee (10/10/24) History of cataract extraction with lens replacement History of colon resection (2012) for colon cancer Family History Family History (Updated 10/10/24 @ 15:24 by Lidya Rodrigues PA-C) Other Family history non-contributory Social History Social History (Updated 10/10/24 @ 22:20 by Lidya Rodrigues PA-C) Social History: Surrogate medical decision maker: Jayla Jasper, spouse. Code status: Full code. Smoking packs per day: 0.5 Smoking cigarettes per day: 10.0 Years smoked: 5 Smoking pack-years: 2.50 Smoking status: Former smoker Tobacco type: cigarettes Second hand tobacco smoke exposure: Yes Smoking end date: 11/30/73 Alcohol intake: never Substance use: never Substance use type: does not use Do You Feel Safe in your Home?: Yes Lack of Transportation: No Lack of Food: Never True Current Housing: I Have Housing Concerned About Future Housing: No Difficulty Paying Gas/Electric Bills: No Difficulty Paying for Meds: No Currently Unemployed: No Education: Don't Know Difficulty w/ Childcare or Family Care: No Living arrangements: with family Additional living arrangements comments: Lives with spouse in [place] Occupation/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 Spiritual care concerns: No Meds Home Medications and Allergies Home Medications Medication Instructions Recorded Confirmed Type loratadine 10 mg tablet (Claritin) 10 mg PO DAILY 08/19/22 10/10/24 History multivitamin (Daily Multi-Vitamin 1 tablet PO DAILY 08/19/22 10/10/24 History tablet) amlodipine 10 mg tablet See Rx Instructions .Route 06/27/24 10/10/24 Rx .COMPLEX #90 tabs hydrochlorothiazide 12.5 mg tablet See Rx Instructions .Route 06/27/24 10/10/24 Rx .COMPLEX #90 tabs metoprolol succinate 25 mg See Rx Instructions .Route 06/27/24 10/10/24 Rx tablet,extended release 24 hr .COMPLEX #90 tabs levothyroxine 125 mcg tablet See Rx Instructions .Route 06/28/24 10/10/24 Rx .COMPLEX #180 tabs celecoxib 200 mg capsule (Celebrex) 200 mg PO PRN PRN Pain 09/22/24 10/10/24 History lovastatin 20 mg tablet See Rx Instructions .Route 09/28/24 10/10/24 Rx .COMPLEX #90 tabs Allergies Allergy/AdvReac Type Severity Reaction Status Date / Time simvastatin [From Zocor] Allergy Unknown legs aching Verified 10/10/24 07:34 lisinopril AdvReac Cough Verified 10/10/24 07:34 Vital Signs Vital Signs - 24 hr 10/10/24 07:38 10/10/24 11:22 10/10/24 11:50 Temperature 97.3 F L 97.2 F L Pulse Rate 61 68 63 Respiratory Rate 14 13 12 Blood Pressure 134/63 136/73 132/62 Pulse Oximetry 97 91 100 Oxygen Delivery Room Air Simple Face Mask Simple Face Mask Oxygen Flow Rate 10 10 10/10/24 11:55 10/10/24 12:05 10/10/24 12:20 Temperature Pulse Rate 61 63 Respiratory Rate 12 12 Blood Pressure 127/63 124/65 Pulse Oximetry 95 89 L Oxygen Delivery Room Air Room Air Nasal Cannula Oxygen Flow Rate 2 10/10/24 11:35 10/10/24 12:35 10/10/24 12:45 Temperature 97.4 F L 97 F L Pulse Rate 63 61 65 Respiratory Rate 14 12 18 Blood Pressure 126/62 122/63 120/57 L Pulse Oximetry 99 95 100 Oxygen Delivery Simple Face Mask Nasal Cannula Oxygen Flow Rate 10 2 10/10/24 01:00 Temperature 97.4 F L Pulse Rate 71 Respiratory Rate 17 Blood Pressure 127/61 Pulse Oximetry 100 Oxygen Delivery Oxygen Flow Rate Exam Narrative: General: Well-developed gentleman with semi-Rosas position in bed it no distress. Weight: 104.1 kg. BMI: 31.1. HEENT: PERRL, EOMI. Sclera anicteric. Oral mucosa moist. Neck: Supple. Respiratory: Lungs are clear to auscultation bilaterally. Cardiovascular: Regular rate and rhythm with S1-S2. Gastrointestinal: Abdomen is soft, nontender, and nondistended with positive bowel sounds. Skin: Warm and dry. No rash or lesions on limited exam. Extremities: No cyanosis, clubbing, or edema. Radial and pedal pulses intact. Musculoskeletal: Right knee dressing is clean, dry, and intact. He is neurovascularly intact distal to the surgical site. Neurological: Alert. Cranial nerves 2-12 grossly intact. No gross focal deficits to casual conversation. Psychiatric: Pleasant and cooperative with normal mood and affect. Judgment and insight intact. Hospitalist MIPS Advance Care Plan I have confirmed that the patient's Advanced Care Plan is present, code status is documented, or surrogate decision maker is listed in patient medical record.: Yes Medication Reconciliation I have utilized all available resources to obtain, update and review the patients current medications (includes all prescriptions, OTC, herbals, cannabis, and nutritional supplements).: Yes
[2024-10-10] MEDS: oxyCODONE HCL (*CRX) 5 MG TAB IR PO ×3 (13:49→20:40)
[2024-10-10] MEDS: ACETAMINOPHEN 325 MG TABLET 650 MG PO ×3 (13:50→20:40)
[2024-10-10] MEDS: diphenhydrAMINE HCl INJ 50 MG/ML VIAL 25 MG IV PUSH (17:21)
[2024-10-10] MEDS: LOVASTATIN 20 MG TABLET BY MOUTH (17:22)
[2024-10-10] MEDS: SENNA/DOCUSATE SODIUM TABLET 2 TAB PO (17:22)
[2024-10-10] MEDS: VANCOMYCIN 1,000 MG/NS 250 ML 1,000 MG/250 ML BAG 250 MG IVPB (19:19)
[2024-10-10] MEDS: FAMOTIDINE 20 MG TABLET PO (20:40)
[2024-10-11] MEDS: ACETAMINOPHEN 325 MG TABLET 650 MG PO ×3 (00:22→08:55)
[2024-10-11] MEDS: ceFAZolin 2 GM/D5W 50 ML 2 GM/50 ML BAG IVPB ×2 (00:22→08:55)
[2024-10-11] MEDS: oxyCODONE HCL (*CRX) 5 MG TAB IR PO ×3 (00:22→08:54)
[2024-10-11 05:24] VITALS: BP 122/64; PULSE 61; RESP 16; TEMP 36.6; O2SAT 97
[2024-10-11] MEDS: VANCOMYCIN 1,000 MG/NS 250 ML 1,000 MG/250 ML BAG 250 MG IVPB (06:27)
[2024-10-11] MEDS: LEVOTHYROXINE SODIUM 125 MCG TABLET 250 MCG BY MOUTH (06:27)
[2024-10-11 06:53] LABS: Basophils Percent Auto 0.1 % (0.2-1.2); Hematocrit 38.5 % (42.0-52.0); Hemoglobin 12.8 g/dL (14.0-18.0); Immature Granulocyte Absolute 0.08 K/mm3 (0.00-0.031); Immature Granulocyte Percent A 0.6 % (0-0.5); Lymphocytes Absolute Auto 1.65 K/mm3 (0.9-3.2); Lymphocytes Percent Auto 11.5 % (18.3-44.2); Mean Corpuscular HGB Conc 33.2 g/dl (32-36); Mean Corpuscular Hemoglobin 31.3 pg (26-34); Mean Corpuscular Volume 94.1 fl (80-100); Mean Platelet Volume 10.1 fl (7.4-10.4); Monocytes Absolute Auto 1.6 K/mm3 (0.1-0.6); Monocytes Percent Auto 10.8 % (2.6-8.5); Neutrophils Absolute Auto 11.1 K/mm3 (1.3-6.7); Platelet Count Result 230 k/mm3 (150-375); Red Blood Count 4.09 M/mm3 (4.6-6.20); Red Cell Distribution Width 13.2 % (11.5-14.5); White Blood Count 14.4 K/mm3 (4.5-10.0)
[2024-10-11 07:02] LABS: Alanine Aminotransferase 48 U/L (6-50); Albumin Level 3.7 g/dL (3.5-5.1); Alkaline Phosphatase 60 U/L (38-126); Anion Gap 5 mmol/L (4-12); Aspartate Amino Transferase 32 U/L (17-59); Bilirubin,Total 0.5 mg/dL (0.2-1.3); Blood Urea Nitrogen 22 mg/dL (9-20); Calcium 8.3 mg/dL (8.4-10.2); Carbon Dioxide 26 mmol/L (22-30); Chloride 107 mmol/L (98-107); Estimated CRCL calculation 75 ml/min; Estimated Glomerular Filt Rate > 60; Glucose 118 mg/dL (65-110); Magnesium 2.1 mg/dL (1.6-2.3); Potassium 4.3 mmol/L (3.4-5.0); Sodium 138 mmol/L (137-145)
--- NOTE | 2024-10-11 07:09 | PM.PNORT ---
Progress Note: A&P Assessment and Plan (1) History of right knee joint replacement: Code(s): Z96.651 - Presence of right artificial knee joint Status: Acute Assessment and Plan: Patient is doing well this morning. He was up around last night. He is afebrile with stable vital signs. Labs today show hemoglobin 12.8. His wound is dry he is neurologically intact. He feels he is ready id this morning. Subjective Subjective Date/Time Seen: 10/11/24 07:09 Objective Data Vital Signs Vital Signs: Vital Signs - 24 hr 10/10/24 07:38 10/10/24 11:22 10/10/24 11:50 Temperature 36.3 C L 36.2 C L Pulse Rate 61 68 63 Pulse Rate [At Rest After Therapy Session] Respiratory Rate 14 13 12 Blood Pressure 134/63 136/73 132/62 Pulse Oximetry 97 91 100 Pulse Oximetry [At Rest After Therapy Session] Oxygen Delivery Room Air Simple Face Mask Simple Face Mask Oxygen Flow Rate 10 10 10/10/24 11:55 10/10/24 12:05 10/10/24 12:20 Temperature Pulse Rate 61 63 Pulse Rate [At Rest After Therapy Session] Respiratory Rate 12 12 Blood Pressure 127/63 124/65 Pulse Oximetry 95 89 L Pulse Oximetry [At Rest After Therapy Session] Oxygen Delivery Room Air Room Air Nasal Cannula Oxygen Flow Rate 2 10/10/24 11:35 10/10/24 12:35 10/10/24 12:45 Temperature 36.3 C L 36.1 C L Pulse Rate 63 61 65 Pulse Rate [At Rest After Therapy Session] Respiratory Rate 14 12 18 Blood Pressure 126/62 122/63 120/57 L Pulse Oximetry 99 95 100 Pulse Oximetry [At Rest After Therapy Session] Oxygen Delivery Simple Face Mask Nasal Cannula Oxygen Flow Rate 10 2 10/10/24 14:05 10/10/24 13:30 10/10/24 15:30 Temperature 35.7 C L Pulse Rate 65 Pulse Rate [At Rest After Therapy Session] 62 Respiratory Rate 17 Blood Pressure 131/63 Pulse Oximetry 99 Pulse Oximetry [At Rest After Therapy Session] 95 Oxygen Delivery Nasal Cannula Room Air Oxygen Flow Rate 2 10/10/24 18:27 10/10/24 20:00 10/10/24 23:40 Temperature 36.1 C L 36.7 C 36.5 C Pulse Rate 74 70 70 Pulse Rate [At Rest After Therapy Session] Respiratory Rate 18 16 14 Blood Pressure 120/53 L 122/60 122/59 L Pulse Oximetry 98 97 96 Pulse Oximetry [At Rest After Therapy Session] Oxygen Delivery Oxygen Flow Rate 10/11/24 05:24 Temperature 36.6 C Pulse Rate 61 Pulse Rate [At Rest After Therapy Session] Respiratory Rate 16 Blood Pressure 122/64 Pulse Oximetry 97 Pulse Oximetry [At Rest After Therapy Session] Oxygen Delivery Oxygen Flow Rate Intake/Output Intake/Output: Intake & Output 10/08/24 10/09/24 10/10/24 10/11/24 23:59 23:59 23:59 23:59 Intake Total 1580 400 Output Total 300 600 Balance 1280 -200 Meds/Results Medications: Active Medications Generic Name Dose Route Start Last Admin Trade Name Freq PRN Reason Stop Dose Admin Acetaminophen 650 mg 10/10/24 13:00 10/11/24 06:27 Acetaminophen 325 Mg Tablet PO 650 mg Q4H WOLF Administration Amlodipine Besylate 10 mg 10/11/24 09:00 Amlodipine Besylate 10 Mg Tablet BY MOUTH DAILY WOLF Apixaban 2.5 mg 10/11/24 09:00 Apixaban 2.5 Mg Tablet PO 10/22/24 21:01 Q12HR WOLF Cefdinir 300 mg 10/11/24 09:00 Cefdinir 300 Mg Capsule PO Q12HR WOLF Celecoxib 200 mg 10/11/24 08:00 Celecoxib 200 Mg Capsule PO DAILY@0800 WOLF Diphenhydramine HCl 25 mg 10/10/24 12:42 10/10/24 17:21 Diphenhydramine Hcl Inj 50 Mg/Ml Vial IV PUSH 25 mg Q6H PRN Administration Itching Famotidine 20 mg 10/10/24 21:00 10/10/24 20:40 Famotidine 20 Mg Tablet PO 20 mg Q12HR WOLF Administration Hydrochlorothiazide 12.5 mg 10/11/24 09:00 Hydrochlorothiazide 12.5 Mg Capsule BY MOUTH DAILY WOLF Cefazolin Sodium 2 gm in 50 mls @ 100 mls/hr 10/10/24 16:00 10/11/24 00:22 Ancef 2 Gm/D5w 50 Ml IVPB 10/11/24 08:29 100 mls/hr Q8H WOLF Administration Levothyroxine Sodium 250 mcg 10/11/24 06:30 10/11/24 06:27 Levothyroxine Sodium 125 Mcg Tablet BY MOUTH 250 mcg DAILY@0630 [facility] Administration Loratadine 10 mg 10/11/24 09:00 Loratadine 10 Mg Tablet PO DAILY [facility] Lovastatin 20 mg 10/10/24 18:00 10/10/24 17:22 Lovastatin 20 Mg Tablet BY MOUTH 20 mg QPM WOLF Administration Metoprolol Succinate 25 mg 10/11/24 09:00 Metoprolol Succinate Ext Rel 25 Mg Tabcr BY MOUTH DAILY [facility] Morphine Sulfate 2 mg 10/10/24 12:42 Morphine Sulfate (*Crx) 2 Mg/Ml Inj IV PUSH Q2H PRN Breakthrough Pain Rated 4-6 or NPO Naloxone HCl 0.1 mg 10/10/24 12:42 Naloxone Hcl 0.4 Mg/Ml Vial IV PUSH Q2M PRN Opiate Reversal Ondansetron HCl 4 mg 10/10/24 12:42 Ondansetron Inj 4 Mg/2 Ml Vial IV PUSH Q4H PRN Nausea And Vomiting Oxycodone HCl 5 mg 10/10/24 13:00 10/11/24 06:27 Oxycodone Hcl (*Crx) 5 Mg Tab Ir PO 5 mg Q4H [facility] Administration Oxycodone HCl 5 mg 10/10/24 12:42 Oxycodone Hcl (*Crx) 5 Mg Tab Ir PO Q4H PRN Pain Rated 7-10 Polyethylene Glycol 17 gm 10/11/24 09:00 Polyethylene Glycol 3350 17 Gm Powd.Pack PO QAM [facility] Senna/Docusate Sodium 2 tab 10/10/24 17:00 10/10/24 17:22 Senna/Docusate Sodium Tablet PO 2 tab BID WOLF Administration Radiology Results: ITS Impressions Knee X-Ray 10/10/24 11:24 IMPRESSION: 1. Total right knee arthroplasty in near-anatomic alignment. Labs Labs: Laboratory Results - last 24 hr 10/10/24 10/11/24 06:20 06:11 WBC 14.4 H RBC 4.09 L Hgb 12.8 L Hct 38.5 L MCV 94.1 MCH 31.3 MCHC 33.2 RDW 13.2 Plt Count 230 MPV 10.1 Immature Gran % (Auto) 0.6 H Neut % (Auto) 77.0 H Lymph % (Auto) 11.5 L [place] % (Auto) 10.8 H Eos % (Auto) 0.0 Baso % (Auto) 0.1 L Lymph # (Auto) 1.65 [place] # (Auto) 1.6 H Eos # (Auto) 0.0 Baso # (Auto) 0.0 Abs Immat Gran (auto) 0.08 H Absolute Neuts (auto) 11.1 H Absolute Nucleated RBC 0.000 Nucleated RBC % 0.0 Sodium 138 Potassium 4.3 Chloride 107 Carbon Dioxide 26 Anion Gap 5 BUN 22 H Creatinine 1.00 Estim Creat Clear Calc 75 Estimated GFR > 60 Glucose 118 H Calcium 8.3 L Magnesium 2.1 Total Bilirubin 0.5 AST 32 ALT 48 Alkaline Phosphatase 60 Total Protein 7.0 Albumin 3.7 Blood Type A Positive Antibody Screen Negative
--- NOTE | 2024-10-11 07:18 | P.DS_ITS ---
DS: Admitting Diagnosis Discharge Date 10/11/2000 Admitting Diagnosis Osteoarthritis right knee DS: Discharge Diagnosis Discharge Diagnosis (1) History of right knee joint replacement: Code(s): Z96.651 - Presence of right artificial knee joint Status: Acute (2) Primary osteoarthritis of right knee: Code(s): M17.11 - Unilateral primary osteoarthritis, right knee Status: Acute DS: Summary Hospital Course Hospital Course: Patient underwent right total knee arthroplasty on 10/10/2024. He has had an uneventful postoperative course. His vital signs are stable his labs look fine and he has been up walking around. He had a little bit of nausea last night which is better this morning. He feels he is ready to go home later this morning after physical therapy. I reviewed the medications that will be prescribed to him with the patient and I reviewed with the patient importance of keeping the leg elevated avoiding resting in the chair and focusing on bending and straightening exercises in the 1st 2 weeks primarily. He is weight-bearing as tolerated. Time Spent with Patient Time attestation: Total time spent providing and/or coordinating discharge services: DS: Data Data Completed and Pending Labs on day of discharge: Labs from last 24 hours 10/11/24 10/10/24 06:11 06:20 WBC 14.4 H RBC 4.09 L Hgb 12.8 L Hct 38.5 L MCV 94.1 MCH 31.3 MCHC 33.2 RDW 13.2 Plt Count 230 MPV 10.1 Immature Gran % (Auto) 0.6 H Neut % (Auto) 77.0 H Lymph % (Auto) 11.5 L [place] % (Auto) 10.8 H Eos % (Auto) 0.0 Baso % (Auto) 0.1 L Lymph # (Auto) 1.65 [place] # (Auto) 1.6 H Eos # (Auto) 0.0 Baso # (Auto) 0.0 Abs Immat Gran (auto) 0.08 H Absolute Neuts (auto) 11.1 H Absolute Nucleated RBC 0.000 Nucleated RBC % 0.0 Sodium 138 Potassium 4.3 Chloride 107 Carbon Dioxide 26 Anion Gap 5 BUN 22 H Creatinine 1.00 Estim Creat Clear Calc 75 Estimated GFR > 60 Glucose 118 H Calcium 8.3 L Magnesium 2.1 Total Bilirubin 0.5 AST 32 ALT 48 Alkaline Phosphatase 60 Total Protein 7.0 Albumin 3.7 TSH (Reflex) Pending Antibody Screen Negative Discharge Plan Discharge Patient Disposition: Home, Self-Care Discharge Instructions: SRIDEVI RASMUSSEN M.D [facility] [address] [address] [address] [place] [address] POST-OPERATIVE DISCHARGE INSTRUCTIONS TOTAL KNEE ARTHROPLASTY 1. When resting, do not rest in the chair.When resting, lie on your back, with back flat on the couch or bed, with leg elevated above heart to minimize swell ing. You may put a pillow under your head. . Significant swelling could indicate a blood clot and if this occurs call the office (or go to the ER) to have a venous ultrasound. Therefore, do not rest in a chair. 2. At least five times a day spend several minutes stretching your knee into flexion while sitting in the chair and also stretching your knee out straight The abilities to bend your knee fully and straighten your knee fully are two most important knee functions to focus on during your recovery. 3. It is ok to sit in chair to eat, use the toilet and receive a guest and to do your stretching exercises, but, sitting in a chair will cause your leg to swell. Therefore, avoid additional time sitting in the chair. and don't rest in the chair. 4. Wound Care: Nursing will give you an additional Mepilex dressing at the time of discharge. Patient to remove the dressing and apply a new Mepilex dressing at home 7 days after surgery and leave the dressing on until seen in office. It is normal to see a small amount of blood on the silver pad of the Mepilex dressing. Its designed to hold small spots of blood. However, if the blood reaches the edge of the pad up to the boarder of the clear membrane that surrounds the pad, the pad is saturated and the Mepilex dressing should be removed and a new Mepilex dressing should be applied. 5. May shower with a Mepilex dressing in place.The water will run off the dressing. 6. Unless you are told otherwise, you may put full weight on your operated leg. Use a walker for balance and practice walking as normally as you can, ideally for a few minutes every hour while you are awake. 7. I would advise against putting ice packs on your knee incision. Ice constricts blood flow which can impar healing of the knee incision. IMPORTANT: Remember not to sit in the chair for more than 30 minutes at a time. As a rule, during the first 14 days after surgery, only sit in the chair to work on the chair knee bending stretch exercise, for meals or for use of the restroom. Sitting in the chair promotes significant swelling in the knee and leg which will make your knee stiff and more painful and which simulates having a blood clot in the veins of the leg. If this type of significant diffuse swelling occurs, an ultrasound at the hospital will be necessary to rule out a blood clot. Be up walking around with the walker for a few minutes every hour while awake and then rest laying on your back on the couch or in bed with your leg elevated on cushions or pillows. Do not rest in the chair. Stand Alone Forms: General Discharge Instructions Discharge Medications: New acetaminophen 325 mg Tablet 650 mg PO Q4H Qty: 100 0RF Eliquis 2.5 mg Tablet 2.5 mg PO Q12HR Qty: 28 0RF celecoxib [Celebrex] 200 mg Capsule 200 mg PO DAILY@0800 Qty: 30 0RF sennosides-docusate sodium [Senokot-S] 8.6-50 mg Tablet 2 tab-cap PO BID Qty: 120 0RF cefdinir 300 mg Capsule 300 mg PO Q12HR Qty: 14 0RF polyethylene glycol 3350 [Miralax] 17 gram Powder In Packet 17 g PO QAM Qty: 30 0RF oxycodone 5 mg Tablet 5 mg PO Q4H PRN (Reason: Pain Rated 7-10) Qty: 40 0RF Continued multivitamin [Daily Multi-Vitamin] Tablet 1 tablet PO DAILY loratadine [Claritin] 10 mg tablet 10 mg PO DAILY celecoxib [Celebrex] 200 mg capsule 200 mg PO PRN PRN (Reason: Pain) hydrochlorothiazide 12.5 mg tablet See Rx Instructions .ROUTE .COMPLEX Qty: 90 1RF Dose Instruction: TAKE 1 TABLET BY MOUTH DAILY Rx Instructions: TAKE 1 TABLET BY MOUTH DAILY metoprolol succinate 25 mg tablet extended release 24 hr See Rx Instructions .ROUTE .COMPLEX Qty: 90 1RF Dose Instruction: TAKE 1 TABLET BY MOUTH DAILY Rx Instructions: TAKE 1 TABLET BY MOUTH DAILY amlodipine 10 mg tablet See Rx Instructions .ROUTE .COMPLEX Qty: 90 1RF Dose Instruction: TAKE 1 TABLET BY MOUTH DAILY Rx Instructions: TAKE 1 TABLET BY MOUTH DAILY levothyroxine 125 mcg tablet See Rx Instructions .ROUTE .COMPLEX Qty: 180 0RF Dose Instruction: TAKE 2 TABLETS BY MOUTH EVERY DAY Rx Instructions: TAKE 2 TABLETS BY MOUTH EVERY DAY lovastatin 20 mg tablet See Rx Instructions .ROUTE .COMPLEX Qty: 90 0RF Dose Instruction: TAKE 1 TABLET BY MOUTH EVERY DAY Rx Instructions: TAKE 1 TABLET BY MOUTH EVERY DAY
[2024-10-11 07:35] LABS: Thyroid Stimulating Hormone Reflex 0.283 uIU/mL (0.465-4.68)
--- NOTE | 2024-10-11 07:41 | P.PNAN_ITS ---
Anes - Prog Note Post-Op Date/Time: 10/11/24 07:41 Cardiovascular status: normal Respiratory status: normal Airway patency: baseline Mental status: baseline Post-Op hydration status: normal Vital Signs: Last Vital Signs Temp 36.6 C 10/11/24 05:24 Pulse 61 10/11/24 05:24 Resp 16 10/11/24 05:24 BP 122/64 10/11/24 05:24 Pulse Ox 97 10/11/24 05:24 O2 Del Method Room Air 10/10/24 15:30 O2 Flow Rate 2 10/10/24 14:05 Pain Score (VAS): 02/06 I/O: Intake & Output 10/10/24 10/10/24 10/11/24 15:59 23:59 07:59 Intake Total 850 730 450 Output Total 300 600 Balance 850 430 -150 Laboratory Tests 10/11/24 06:11 10/11/24 06:11 10/11/24 06:11 WBC 14.4 H RBC 4.09 L Hgb 12.8 L Hct 38.5 L MCV 94.1 MCH 31.3 MCHC 33.2 RDW 13.2 Plt Count 230 MPV 10.1 Immature Gran % (Auto) 0.6 H Neut % (Auto) 77.0 H Lymph % (Auto) 11.5 L [place] % (Auto) 10.8 H Eos % (Auto) 0.0 Baso % (Auto) 0.1 L Lymph # (Auto) 1.65 [place] # (Auto) 1.6 H Eos # (Auto) 0.0 Baso # (Auto) 0.0 Abs Immat Gran (auto) 0.08 H Absolute Neuts (auto) 11.1 H Absolute Nucleated RBC 0.000 Nucleated RBC % 0.0 Sodium 138 Potassium 4.3 Chloride 107 Carbon Dioxide 26 Anion Gap 5 BUN 22 H Creatinine 1.00 Estim Creat Clear Calc 75 Estimated GFR > 60 Glucose 118 H Calcium 8.3 L Magnesium 2.1 Total Bilirubin 0.5 AST 32 ALT 48 Alkaline Phosphatase 60 Total Protein 7.0 Albumin 3.7 TSH (Reflex) 0.283 L Free T4 Pending Post-procedural complaints: none Patient Feedback: Patient satisfied with anesthetic care.
[2024-10-11 08:00] VITALS: BP 129/60; PULSE 63; RESP 16; TEMP 36.2; O2SAT 97
[2024-10-11] MEDS: amLODIPine BESYLATE 10 MG TABLET BY MOUTH (08:54)
[2024-10-11] MEDS: APIXABAN 2.5 MG TABLET PO (08:54)
[2024-10-11] MEDS: LORATADINE 10 MG TABLET PO (08:54)
[2024-10-11] MEDS: SENNA/DOCUSATE SODIUM TABLET 2 TAB PO (08:54)
[2024-10-11] MEDS: CEFDINIR 300 MG CAPSULE PO (08:54)
[2024-10-11] MEDS: CELECOXIB 200 MG CAPSULE PO (08:54)
[2024-10-11] MEDS: FAMOTIDINE 20 MG TABLET PO (08:55)
[2024-10-11] MEDS: METOPROLOL SUCCINATE EXT REL 25 MG TABCR BY MOUTH (08:55)
[2024-10-11] MEDS: hydroCHLOROthiazide 12.5 MG CAPSULE BY MOUTH (08:55)
[2024-10-11] MEDS: polyethylene glycoL 3350 17 GM POWD.PACK PO (08:55)
[2024-10-11 10:17] LABS: Free T4 Free Thyroxine Reflex 1.53 ng/dL (0.78-2.19)
[2024-10-11 11:07] LABS: Total Triiodothyronine (T3) 1.71 NG/ML (0.97-1.69)
[2024-10-11 12:00] VITALS: BP 131/61; PULSE 69; RESP 16; TEMP 36.3; O2SAT 99
== END 2024-10-11 12:34 | disposition home or self-care (01) ==
LOC: ANHSURGERY 09:41 → ANH3MEDSUR 12:46
PROVIDERS: Physician Assistant; Physician Assistant Surgical; PCP Nurse Practitioner Family; Visit Provider Orthopaedic Surgery
PROC: (CPT 27447; principal; 2024-10-10 07:30)
DX: M17.11 Unilateral primary osteoarthritis, right knee (principal); M25.761 Osteophyte, right knee; M94.261 Chondromalacia, right knee; E78.2 Mixed hyperlipidemia; I10 Essential (primary) hypertension; E03.9 Hypothyroidism, unspecified; E66.9 Obesity, unspecified; Z68.31 Body mass index [BMI] 31.0-31.9, adult; Z79.1 Long term (current) use of non-steroidal anti-inflammatories (NSAID); Z98.890 Other specified postprocedural states; Z90.49 Acquired absence of other specified parts of digestive tract; Z87.891 Personal history of nicotine dependence; Z87.442 Personal history of urinary calculi; Z85.038 Personal history of other malignant neoplasm of large intestine
CPT/HCPCS: 27447; 36415; 73560; 80048; 80053; 80307; 82040; 83036; 83735; 84439; 84443; 84480; 85025; 86850; 86900; 86901; 87081; 93005; 97110; 97116; 97161; 97165; 97530; 97535; A9270; C1713; C1776; J0171; J0690; J1100; J1200; J1885; J2003; J2270; J2405; J2704; J2795; J3010; J3370; J7120